=== PATIENT | male | born 1970 | race Caucasian/White ===

== ENCOUNTER 2025-02-05 13:06 | Emergency (ER) | payer OTHER ==
[~2025-02-05 13:06] MED LIST: Iopamidol 370 76% 100 ML VIAL ONE
[2025-02-05 14:57] LABS: #Basophils 0.09 10x3/uL (0.0-0.2); #Eosinophils 0.09 10x3/uL (0.0-0.7); #Monocytes 1.31 10x3/uL (0.11-0.59); #Neutrophils 6.33 10x3/uL (1.40-6.50); %Basophils 1.0 % (0.0-1.0); %Eosinophils 1.0 % (0.0-10.0); %Lymphocytes 14.0 % (21.0-51.0); %Monocytes 14.3 % (0.0-10.0); %Neutrophils 69.3 % (42.0-75.0); Hematocrit 27.9 % (42.0-52.0); Hemoglobin 9.9 g/dL (14.0-18.0); Mean Corpuscular Hemoglobin 32.0 pg (27.0-31.0); Mean Corpuscular Volume 90.3 fL (78.0-98.0); Platelet Count 123 10x3/uL (130-400); Red Blood Cell (RBC) Count 3.09 mill/uL (4.70-6.10); White Blood Cell (WBC) Count 9.14 10x3/uL (4.8-10.8)
[2025-02-05 15:12] LABS: ALT (SGPT) 40 U/L (Less than 45); AST (SGOT) 77 U/L (11-34); Albumin 2.3 g/dL (3.1-4.5); Alkaline Phosphatase 95 U/L (40-110); Anion Gap 14 mmol/L (10-20); BUN (Urea Nitrogen) 9 mg/dL (8.4-25.7); Bilirubin, Total 1.5 mg/dL (0.3-1.2); Calc. Creatinine Clearance 0 mL/min (70-130); Calcium 9.0 mg/dL (7.8-10.44); Carbon Dioxide 22 mmol/L (22-29); Chloride 96 mmol/L (98-107); Globulin 4.8 g/dL (2.4-3.5); Glucose 113 mg/dL (70-105); Lipase 21 U/L (8-78); Potassium 4.4 mmol/L (3.5-5.1); Sodium 128 mmol/L (136-145)
== END 2025-02-05 16:53 | disposition home or self-care (01) ==
LOC: ERS 13:06
DX: T85.590A Other mechanical complication of bile duct prosthesis, initial encounter (principal); I10 Essential (primary) hypertension; K21.9 Gastro-esophageal reflux disease without esophagitis; Z79.899 Other long term (current) drug therapy
CPT/HCPCS: 74177; 80053; 83690; 85025; Q9967

== ENCOUNTER 2025-02-09 13:47 | Outpatient (CLI) | payer OTHER ==
[2025-02-09] MEDS ORDERED: Sodium Bicarbonate 2.5 MEQ/5 ML SDV ONE (15:47)
[2025-02-09] MEDS ORDERED: Lidocaine 1% PF 5 ML VIAL ONE (15:47)
== END 2025-02-09 17:00 | disposition short-term general hospital (02) ==
LOC: CT 13:47
PROVIDERS: ATTEND Psychiatry & Neurology Psychiatry
DX: K81.9 Cholecystitis, unspecified (principal); Z90.49 Acquired absence of other specified parts of digestive tract
CPT/HCPCS: 74176; 87070; 87077; 87205

== ENCOUNTER 2025-02-09 17:09 | Inpatient (IN) | payer OTHER ==
[2025-02-09 18:26] LABS: #Basophils 0.14 10x3/uL (0.0-0.2); #Eosinophils 0.17 10x3/uL (0.0-0.7); #Monocytes 1.51 10x3/uL (0.11-0.59); #Neutrophils 5.78 10x3/uL (1.40-6.50); %Basophils 1.4 % (0.0-1.0); %Eosinophils 1.7 % (0.0-10.0); %Lymphocytes 21.6 % (21.0-51.0); %Monocytes 15.5 % (0.0-10.0); %Neutrophils 59.4 % (42.0-75.0); Hematocrit 25.6 % (42.0-52.0); Hemoglobin 9.0 g/dL (14.0-18.0); Mean Corpuscular Hemoglobin 31.7 pg (27.0-31.0); Mean Corpuscular Volume 90.1 fL (78.0-98.0); Platelet Count 125 10x3/uL (130-400); Red Blood Cell (RBC) Count 2.84 mill/uL (4.70-6.10); White Blood Cell (WBC) Count 9.75 10x3/uL (4.8-10.8)
[2025-02-09 18:42] LABS: ALT (SGPT) 77 U/L (Less than 45); AST (SGOT) 153 U/L (11-34); Albumin 2.1 g/dL (3.1-4.5); Alkaline Phosphatase 89 U/L (40-110); Anion Gap 12 mmol/L (10-20); BUN (Urea Nitrogen) 10 mg/dL (8.4-25.7); Bilirubin, Total 1.7 mg/dL (0.3-1.2); Calc. Creatinine Clearance 0 mL/min (70-130); Calcium 8.6 mg/dL (7.8-10.44); Carbon Dioxide 24 mmol/L (22-29); Chloride 95 mmol/L (98-107); Globulin 4.7 g/dL (2.4-3.5); Glucose 100 mg/dL (70-105); Potassium 3.7 mmol/L (3.5-5.1); Sodium 127 mmol/L (136-145)
[2025-02-09] MEDS ORDERED: Guaifenesin DM 100-10/5 ML UDCUP PO PRN (20:57)
[2025-02-09] MEDS: Thiamine 100 MG TAB PO SCH (22:30)
[2025-02-09] MEDS: Melatonin 3 MG TAB PO SCH (22:31)
[2025-02-10] MEDS: Acetaminophen 325 MG TAB PO PRN (04:22)
[2025-02-10 07:35] LABS: #Basophils 0.11 10x3/uL (0.0-0.2); #Eosinophils 0.19 10x3/uL (0.0-0.7); #Monocytes 1.41 10x3/uL (0.11-0.59); #Neutrophils 3.85 10x3/uL (1.40-6.50); %Basophils 1.5 % (0.0-1.0); %Eosinophils 2.6 % (0.0-10.0); %Lymphocytes 24.9 % (21.0-51.0); %Monocytes 19.0 % (0.0-10.0); %Neutrophils 51.6 % (42.0-75.0); Hematocrit 22.4 % (42.0-52.0); Hemoglobin 8.0 g/dL (14.0-18.0); Mean Corpuscular Hemoglobin 31.4 pg (27.0-31.0); Mean Corpuscular Volume 87.8 fL (78.0-98.0); Platelet Count 111 10x3/uL (130-400); Red Blood Cell (RBC) Count 2.55 mill/uL (4.70-6.10); White Blood Cell (WBC) Count 7.44 10x3/uL (4.8-10.8)
[2025-02-10 07:52] LABS: ALT (SGPT) 64 U/L (Less than 45); AST (SGOT) 113 U/L (11-34); Albumin 1.7 g/dL (3.1-4.5); Alkaline Phosphatase 74 U/L (40-110); Anion Gap 9 mmol/L (10-20); BUN (Urea Nitrogen) 11 mg/dL (8.4-25.7); Bilirubin, Total 1.4 mg/dL (0.3-1.2); Calc. Creatinine Clearance 155 mL/min (70-130); Calcium 8.2 mg/dL (7.8-10.44); Carbon Dioxide 24 mmol/L (22-29); Chloride 99 mmol/L (98-107); Globulin 3.9 g/dL (2.4-3.5); Glucose 104 mg/dL (70-105); Potassium 3.9 mmol/L (3.5-5.1); Sodium 128 mmol/L (136-145)
[2025-02-10] MEDS: Pantoprazole 40 MG DR.TAB PO SCH (09:51)
[2025-02-10] MEDS: pyridOXINE 50 MG (B6) TAB PO SCH (09:51)
[2025-02-10] MEDS: Enoxaparin 40 MG (0.4 mL) SYRINGE SC SCH (09:51)
[2025-02-10] MEDS: Metoprolol Succinate XL 100 MG ER.TAB PO SCH (09:51)
[2025-02-10] MEDS ORDERED: Lidocaine 1% w/Epinephrine 1:100K 20 ML VIAL ONE (12:12)
[2025-02-10] MEDS ORDERED: Sodium Bicarbonate 2.5 MEQ/5 ML SDV ONE (12:12)
[2025-02-11] MEDS: VANCOMYCIN 1.75 GM/350 ML Premix BAG IVPB SCH (01:05)
[2025-02-11 05:47] LABS: #Basophils 0.06 10x3/uL (0.0-0.2); #Eosinophils 0.10 10x3/uL (0.0-0.7); #Monocytes 0.73 10x3/uL (0.11-0.59); #Neutrophils 7.48 10x3/uL (1.40-6.50); %Basophils 0.6 % (0.0-1.0); %Eosinophils 1.0 % (0.0-10.0); %Lymphocytes 19.0 % (21.0-51.0); %Monocytes 7.0 % (0.0-10.0); %Neutrophils 71.8 % (42.0-75.0); ALT (SGPT) 58 U/L (Less than 45); AST (SGOT) 90 U/L (11-34); Albumin 1.7 g/dL (3.1-4.5); Alkaline Phosphatase 73 U/L (40-110); Anion Gap 11 mmol/L (10-20); BUN (Urea Nitrogen) 11 mg/dL (8.4-25.7); Bilirubin, Total 2.0 mg/dL (0.3-1.2); Calc. Creatinine Clearance 118 mL/min (70-130); Calcium 8.3 mg/dL (7.8-10.44); Carbon Dioxide 24 mmol/L (22-29); Chloride 96 mmol/L (98-107); Globulin 4.2 g/dL (2.4-3.5); Glucose 96 mg/dL (70-105); Hematocrit 24.7 % (42.0-52.0); Hemoglobin 8.7 g/dL (14.0-18.0); Mean Corpuscular Hemoglobin 31.8 pg (27.0-31.0); Mean Corpuscular Volume 90.1 fL (78.0-98.0); Platelet Count 115 10x3/uL (130-400); Potassium 3.9 mmol/L (3.5-5.1); Red Blood Cell (RBC) Count 2.74 mill/uL (4.70-6.10); Sodium 127 mmol/L (136-145); White Blood Cell (WBC) Count 10.41 10x3/uL (4.8-10.8)
[2025-02-11] MEDS: Ibuprofen 600 MG TAB PO PRN (12:26)
[2025-02-11] MEDS: Vancomycin 1.25 GM / NS 250 ML VIAL-2-BAG IVPB SCH (12:27)
[2025-02-12] MEDS: Melatonin 3 MG TAB PO PRN (01:18)
[2025-02-12] MEDS: Calcium Carbonate 500 MG ChewTAB PO PRN (03:03)
[2025-02-12 05:44] LABS: #Basophils 0.10 10x3/uL (0.0-0.2); #Eosinophils 0.19 10x3/uL (0.0-0.7); #Monocytes 1.31 10x3/uL (0.11-0.59); #Neutrophils 11.27 10x3/uL (1.40-6.50); %Basophils 0.7 % (0.0-1.0); %Eosinophils 1.3 % (0.0-10.0); %Lymphocytes 8.9 % (21.0-51.0); %Monocytes 9.2 % (0.0-10.0); %Neutrophils 79.3 % (42.0-75.0); Hematocrit 28.6 % (42.0-52.0); Hemoglobin 9.9 g/dL (14.0-18.0); Mean Corpuscular Hemoglobin 30.9 pg (27.0-31.0); Mean Corpuscular Volume 89.4 fL (78.0-98.0); Platelet Count 130 10x3/uL (130-400); Red Blood Cell (RBC) Count 3.20 mill/uL (4.70-6.10); White Blood Cell (WBC) Count 14.23 10x3/uL (4.8-10.8)
[2025-02-12 05:56] LABS: Vancomycin, Random 45.0 ug/mL (See Comment)
[2025-02-12 06:13] LABS: ALT (SGPT) 48 U/L (Less than 45); AST (SGOT) 64 U/L (11-34); Albumin 1.9 g/dL (3.1-4.5); Alkaline Phosphatase 84 U/L (40-110); Anion Gap 12 mmol/L (10-20); BUN (Urea Nitrogen) 16 mg/dL (8.4-25.7); Bilirubin, Total 2.1 mg/dL (0.3-1.2); Calc. Creatinine Clearance 58 mL/min (70-130); Calcium 8.7 mg/dL (7.8-10.44); Carbon Dioxide 22 mmol/L (22-29); Chloride 94 mmol/L (98-107); Globulin 4.5 g/dL (2.4-3.5); Glucose 116 mg/dL (70-105); Potassium 3.8 mmol/L (3.5-5.1); Sodium 124 mmol/L (136-145)
[2025-02-12] MEDS ORDERED: Vancomycin Dose by Levels Sliding Scale (Wt 71-99) FS SCH (07:45)
[2025-02-12] MEDS: Prochlorperazine 10 MG/2 ML VIAL SLOW IVP PRN (08:24)
[2025-02-12] MEDS: Multivit, Therapeutic 1 TAB PO SCH (09:09)
[2025-02-12] MEDS ORDERED: Ondansetron PF 4 MG/2 ML Vial IVP PRN (12:21)
[2025-02-12] MEDS: Albumin 25% 25 GM (100 mL) BOT IVPB SCH (13:39)
[2025-02-12 17:47] LABS: INR-International Normal Ratio 1.8; PTT 39.3 sec (22.9-36.1); Prothrombin Time 21.1 sec (12.0-14.7)
[2025-02-13 07:05] LABS: #Basophils 0.09 10x3/uL (0.0-0.2); #Eosinophils 0.29 10x3/uL (0.0-0.7); #Monocytes 1.56 10x3/uL (0.11-0.59); #Neutrophils 13.64 10x3/uL (1.40-6.50); %Basophils 0.5 % (0.0-1.0); %Eosinophils 1.7 % (0.0-10.0); %Lymphocytes 5.8 % (21.0-51.0); %Monocytes 9.4 % (0.0-10.0); %Neutrophils 81.8 % (42.0-75.0); Hematocrit 25.1 % (42.0-52.0); Hemoglobin 8.7 g/dL (14.0-18.0); Mean Corpuscular Hemoglobin 31.4 pg (27.0-31.0); Mean Corpuscular Volume 90.6 fL (78.0-98.0); Platelet Count 128 10x3/uL (130-400); Red Blood Cell (RBC) Count 2.77 mill/uL (4.70-6.10); White Blood Cell (WBC) Count 16.68 10x3/uL (4.8-10.8)
[2025-02-13 07:32] LABS: ALT (SGPT) 33 U/L (Less than 45); AST (SGOT) 40 U/L (11-34); Albumin 2.7 g/dL (3.1-4.5); Alkaline Phosphatase 66 U/L (40-110); Anion Gap 17 mmol/L (10-20); BUN (Urea Nitrogen) 23 mg/dL (8.4-25.7); Bilirubin, Total 1.8 mg/dL (0.3-1.2); Calc. Creatinine Clearance 36 mL/min (70-130); Calcium 8.8 mg/dL (7.8-10.44); Carbon Dioxide 18 mmol/L (22-29); Chloride 93 mmol/L (98-107); Globulin 3.9 g/dL (2.4-3.5); Glucose 116 mg/dL (70-105); Potassium 3.4 mmol/L (3.5-5.1); Sodium 125 mmol/L (136-145)
[2025-02-13] MEDS: Enoxaparin 30 MG (0.3 mL) SYRINGE SC SCH (08:18)
[2025-02-13] MEDS: Potassium Bicarbonate/Cit Ac 20 MEQ TAB PO SCH (08:18)
[2025-02-13 11:06] LABS: Potassium, Urine 97.8 mmol/L; Sodium, Urine Less than 20 mmol/L (Not Available)
[2025-02-13] MEDS: Albumin 25% 25 GM (100 mL) BOT IVPB SCH (11:25)
[2025-02-13 11:56] LABS: Osmolality, Urine 295 mOsm/kg (50-1200)
[2025-02-13] MEDS: Admixture Fee 1 EACH in Sodium Chloride 3% 100 ML IVPB SCH (12:38)
[2025-02-13 16:49] LABS: Anion Gap 14 mmol/L (10-20); BUN (Urea Nitrogen) 23 mg/dL (8.4-25.7); Calc. Creatinine Clearance 32 mL/min (70-130); Calcium 8.6 mg/dL (7.8-10.44); Carbon Dioxide 22 mmol/L (22-29); Chloride 94 mmol/L (98-107); Glucose 102 mg/dL (70-105); Potassium 3.3 mmol/L (3.5-5.1); Sodium 127 mmol/L (136-145)
[2025-02-14 11:16] LABS: Osmolality, Serum 267 mOsm/kg (275-295)
[2025-02-14 11:18] LABS: ALT (SGPT) 27 U/L (Less than 45); AST (SGOT) 31 U/L (11-34); Albumin 2.5 g/dL (3.1-4.5); Alkaline Phosphatase 68 U/L (40-110); Anion Gap 13 mmol/L (10-20); BUN (Urea Nitrogen) 25 mg/dL (8.4-25.7); Bilirubin, Total 1.4 mg/dL (0.3-1.2); Calc. Creatinine Clearance 39 mL/min (70-130); Calcium 8.6 mg/dL (7.8-10.44); Carbon Dioxide 20 mmol/L (22-29); Chloride 96 mmol/L (98-107); Globulin 3.9 g/dL (2.4-3.5); Glucose 90 mg/dL (70-105); Magnesium 1.4 mg/dL (1.6-2.6); Potassium 3.2 mmol/L (3.5-5.1); Sodium 126 mmol/L (136-145)
[2025-02-14] MEDS: Potassium Chloride 20 MEQ in Premix 1 BAG IVPB SCH (13:55)
[2025-02-14 16:34] VITALS: BMI 26.6
[2025-02-14] MEDS: Albumin 25% 25 GM (100 mL) BOT IVPB SCH (18:04)
[2025-02-15 05:57] LABS: #Basophils 0.09 10x3/uL (0.0-0.2); #Eosinophils 0.46 10x3/uL (0.0-0.7); #Monocytes 1.64 10x3/uL (0.11-0.59); #Neutrophils 11.03 10x3/uL (1.40-6.50); %Basophils 0.6 % (0.0-1.0); %Eosinophils 3.1 % (0.0-10.0); %Lymphocytes 8.8 % (21.0-51.0); %Monocytes 11.2 % (0.0-10.0); %Neutrophils 75.5 % (42.0-75.0); Hematocrit 23.4 % (42.0-52.0); Hemoglobin 8.1 g/dL (14.0-18.0); Mean Corpuscular Hemoglobin 31.0 pg (27.0-31.0); Mean Corpuscular Volume 89.7 fL (78.0-98.0); Platelet Count 140 10x3/uL (130-400); Red Blood Cell (RBC) Count 2.61 mill/uL (4.70-6.10); White Blood Cell (WBC) Count 14.61 10x3/uL (4.8-10.8)
[2025-02-15 06:08] LABS: ALT (SGPT) 22 U/L (Less than 45); AST (SGOT) 31 U/L (11-34); Albumin 2.8 g/dL (3.1-4.5); Alkaline Phosphatase 58 U/L (40-110); Anion Gap 13 mmol/L (10-20); BUN (Urea Nitrogen) 22 mg/dL (8.4-25.7); Bilirubin, Total 1.4 mg/dL (0.3-1.2); Calc. Creatinine Clearance 54 mL/min (70-130); Calcium 8.7 mg/dL (7.8-10.44); Carbon Dioxide 20 mmol/L (22-29); Chloride 96 mmol/L (98-107); Globulin 3.2 g/dL (2.4-3.5); Glucose 96 mg/dL (70-105); Potassium 3.0 mmol/L (3.5-5.1); Sodium 126 mmol/L (136-145)
[2025-02-15 06:08] LABS: INR-International Normal Ratio 1.9; Prothrombin Time 21.6 sec (12.0-14.7)
[2025-02-15] MEDS: Potassium Chloride 20 MEQ in Premix 1 BAG IVPB SCH (08:25)
[2025-02-15 23:43] VITALS: BP 144/67; TEMP 98.3
== END 2025-02-15 23:30 | disposition short-term general hospital (02) | DRG 919 ==
LOC: ERS 17:09 → T4-A 20:57 → OBSVTOIN 02-10 13:21
PROVIDERS: ADMIT Internal Medicine; ATTEND Hospitalist
PROC: 0W9G30Z Drainage of Peritoneal Cavity with Drainage Device, Percutaneous Approach (ICD-10-PCS; principal; 2025-02-10)
PROC: 0F943ZZ Drainage of Gallbladder, Percutaneous Approach (ICD-10-PCS; 2025-02-10)
PROC: 3E03329 Introduction of Other Anti-infective into Peripheral Vein, Percutaneous Approach (ICD-10-PCS; 2025-02-10)
PROC: 30233J1 Transfusion of Nonautologous Serum Albumin into Peripheral Vein, Percutaneous Approach (ICD-10-PCS; 2025-02-14)
DX: T85.79XA Infection and inflammatory reaction due to other internal prosthetic devices, implants and grafts, initial encounter (principal); K65.2 Spontaneous bacterial peritonitis; E87.1 Hypo-osmolality and hyponatremia; N99.512 Cystostomy malfunction; N17.9 Acute kidney failure, unspecified; E87.20 Acidosis, unspecified; K81.0 Acute cholecystitis; K21.9 Gastro-esophageal reflux disease without esophagitis; E87.6 Hypokalemia; E83.42 Hypomagnesemia; K70.31 Alcoholic cirrhosis of liver with ascites; F10.90 Alcohol use, unspecified, uncomplicated; I48.91 Unspecified atrial fibrillation; D69.6 Thrombocytopenia, unspecified; E88.09 Other disorders of plasma-protein metabolism, not elsewhere classified; N18.30 Chronic kidney disease, stage 3 unspecified; D63.1 Anemia in chronic kidney disease; Z90.49 Acquired absence of other specified parts of digestive tract; Z88.8 Allergy status to other drugs, medicaments and biological substances; Z88.0 Allergy status to penicillin; Z98.890 Other specified postprocedural states
CPT/HCPCS: 36415; 47536; 49083; 71045; 74018; 80053; 80202; 82436; 82570; 83605; 83735; 83930; 83935; 84100; 84133; 84300; 85025; 85610; 85730; 87040; 87070; 87077; 87186; 87205; 87324; 87428; 87449; 93005; 93010; 96365; 96375; 96376; C1729; C1769; C1894; G0378; J0692; J0780; J2543; J3373; J3375; J3475; J3480; J7030; J7050; J7131; P9047; Q9967